=== PATIENT | male | born 1960 | race Caucasian/White ===

== ENCOUNTER 2017-05-18 19:35 | Emergency (ER) | payer OTHER ==
[~2017-05-18] VITALS: Ht 175.3 cm; Wt 77.1 kg
[~2017-05-18 19:35] MED LIST: CLINDAMYCIN HC150 MG ORAL; DIOVAN80 MG ORAL; GABAPENTIN300 MG ORAL; PANTOPRAZOLE SO40 MG ORAL; PROZAC20 MG ORAL; TOBRADEX EYE DRO5 M1 OP
--- NOTE | 2017-05-18 19:53 | Emergency Room Report ---
History of Present Illness General Chief Complaint: Pain Source: Patient Present Illness HPI 56-year-old male, history of hypertension, PTSD, presenting with generalized weakness for 3 days. Patient states that he was seen in [facility] yesterday , but left AGAINST MEDICAL ADVICE because he wanted to go home. Patient says that he is just felt very dizzy for the last 3 days, no fall. No chest pain or shortness of breath. No fever or chills pt also endorsing his worsening of PTSD. endorsing that he "wants to hurt people " but will not say how. states he was in the and has firearms at home Allergies: Coded Allergies: PENICILLINS (Unverified Allergy, Unknown, 05/18/17) Patient History Past Medical History: see triage record Past Surgical History: none Pertinent Family History: none Reviewed Nursing Documentation: PMH: Agreed, PSxH: Agreed Nursing Documentation-PMH Hx Hypertension: Yes History Of Psychiatric Problem: Yes - Depression, PTSD Review of Systems All Other Systems: negative except mentioned in HPI Physical Exam Vital Signs Date Time Temp Pulse Resp B/P (MAP) Pulse Ox O2 Delivery O2 Flow Rate FiO2 05/18/17 19:27 98.2 88 16 118/73 98 Room Air 98.2 Sp02 EP Interpretation: reviewed, normal General Appearance: alert, GCS 15, non-toxic, moderate distress Head: normocephalic, atraumatic Eyes: bilateral eye normal inspection, bilateral eye PERRL, bilateral eye EOMI ENT: normal ENT inspection, normal pharynx, normal voice, moist mucus membranes Neck: normal inspection, full range of motion, supple Respiratory: normal inspection, lungs clear, normal breath sounds, no respiratory distress, no retraction, no wheezing, speaking full sentences, chest symmetrical Cardiovascular #1: normal inspection, regular rate, rhythm, normal capillary refill Cardiovascular #2: 2+ radial (R), 2+ radial (L) Gastrointestinal: normal inspection, non tender, soft, non-distended, no guarding Musculoskeletal: normal inspection, back normal, normal range of motion, non- tender Neurologic: normal inspection, alert, oriented x3, responsive, motor strength/ tone normal, sensory intact, normal gait, speech normal Psychiatric: normal inspection, judgement/insight normal, memory normal Skin: normal inspection, normal color, no rash, warm/dry, well hydrated, normal turgor Medical Decision Making Diagnostic Impression: Primary Impression: Dizziness Additional Impression: Homicidal thoughts ER Course 56-year-old male, with 3 days of feeling lightheaded, also PTSD +homicidal ideation DDX: Electrolyte disturbance, dehydration, cardiac, drug intoxication, psych Plan: Obtain labs, ua, ucx, CXR, EKG ER course: Patient has remained stable during ED stay. given ativan still endorsing HI informed psych Dr Helton about patient Signed out to Dr Guerrier -pending psych eval for HI. not on a hold Please note that this Emergency Department Report was dictated using [employer] engineering intern technology software, occasionally this can lead to erroneous entry secondary to interpretation by the dictation equipment EKG Diagnostic Results EP Interpretation: Yes Rate: normal Rhythm: NSR ST Segments: No acute changes ASA given to patient: No Chest X-ray CXR: Ordered: Yes 1 view Indication: Chest pain EP interpretation: Yes Interpretation: No consolidation, no effusion, no PTX, no acute cardiopulmonary disease Impression: No acute disease Electronically signed by Regla Rae MD Laboratory Tests Test 05/18/17 20:20 White Blood Count 14.2 K/UL (4.8-10.8) H Red Blood Count 4.16 M/UL (4.70-6.10) L Hemoglobin 13.5 G/DL (14.2-18.0) L Hematocrit 38.4 % (42.0-52.0) L Mean Corpuscular Volume 92 FL (80-99) Mean Corpuscular Hemoglobin 32.5 PG (27.0-31.0) H Mean Corpuscular Hemoglobin Concent 35.2 G/DL (32.0-36.0) Red Cell Distribution Width 11.5 % (11.6-14.8) L Platelet Count 349 K/UL (150-450) Mean Platelet Volume 7.0 FL (6.5-10.1) Neutrophils (%) (Auto) 65.9 % (45.0-75.0) Lymphocytes (%) (Auto) 21.9 % (20.0-45.0) Monocytes (%) (Auto) 8.3 % (1.0-10.0) Eosinophils (%) (Auto) 3.2 % (0.0-3.0) H Basophils (%) (Auto) 0.7 % (0.0-2.0) Urine Color Yellow Urine Appearance Clear Urine pH 7 (4.5-8.0) Urine Specific [place] 1.005 (1.005-1.035) Urine Protein Negative (NEGATIVE) Urine Glucose (UA) Negative (NEGATIVE) Urine Ketones Negative (NEGATIVE) Urine Occult Blood Negative (NEGATIVE) Urine Nitrite Negative (NEGATIVE) Urine Bilirubin Negative (NEGATIVE) Urine Urobilinogen 4 MG/DL (0.0-1.0) H Urine Leukocyte Esterase 1+ (NEGATIVE) H Urine RBC 0-2 /HPF (0 - 0) H Urine WBC 2-4 /HPF (0 - 0) Urine Squamous Epithelial Cells None /LPF (NONE/OCC) Urine Bacteria Few /HPF (NONE) Sodium Level 137 MMOL/L (136-145) Potassium Level 4.9 MMOL/L (3.5-5.1) Chloride Level 98 MMOL/L (98-107) Carbon Dioxide Level 32 MMOL/L (21-32) Anion Gap 7 mmol/L (5-15) Blood Urea Nitrogen 20 mg/dL (7-18) H Creatinine 1.2 MG/DL (0.55-1.30) Estimate Glomerular Filtration Rate > 60 mL/min (>60) Glucose Level 107 MG/DL (74-106) H Calcium Level 9.1 MG/DL (8.5-10.1) Total Bilirubin 0.2 MG/DL (0.2-1.0) Aspartate Amino Transferase (AST) 40 U/L (15-37) H Alanine Aminotransferase (ALT) 76 U/L (12-78) Alkaline Phosphatase 101 U/L (46-116) Troponin I 0.000 ng/mL (0.000-0.056) Total Protein 7.2 G/DL (6.4-8.2) Albumin 3.2 G/DL (3.4-5.0) L Globulin 4.0 g/dL Albumin/Globulin Ratio 0.8 (1.0-2.7) L Urine Opiates Screen Negative (NEGATIVE) Urine Barbiturates Screen Negative (NEGATIVE) Phencyclidine (PCP) Screen Negative (NEGATIVE) Urine Amphetamines Screen Negative (NEGATIVE) Urine Benzodiazepines Screen Negative (NEGATIVE) Urine Cocaine Screen Negative (NEGATIVE) Urine Marijuana (THC) Screen Positive (NEGATIVE) H Serum Alcohol < 3 mg/dL Last Vital Signs Date Time Temp Pulse Resp B/P (MAP) Pulse Ox O2 Delivery O2 Flow Rate FiO2 05/18/17 19:27 98.2 88 16 118/73 98 Room Air 98.2 Regla Rae M.D. May 18, 2017 19:52
[2017-05-18] MEDS ORDERED: LORazepam Inj 2mg/ml 1ml IV ONE (20:00)
[2017-05-18 20:59] LABS: ANION GAP 7 mmol/L (5-15); BLOOD UREA NITROGEN 20 mg/dL (7-18); CALCIUM 9.1 MG/DL (8.5-10.1); CARBON DIOXIDE 32 MMOL/L (21-32); CHLORIDE 98 MMOL/L (98-107); CREATININE 1.2 MG/DL (0.55-1.30); POTASSIUM 4.9 MMOL/L (3.5-5.1); SODIUM 137 MMOL/L (136-145)
[2017-05-18 21:00] LABS: BASOPHILS % (AUTO) 0.7 % (0.0-2.0); EOSINOPHILS % (AUTO) 3.2 % (0.0-3.0); HEMATOCRIT 38.4 % (42.0-52.0); HEMOGLOBIN 13.5 G/DL (14.2-18.0); LYMPHOCYTES % (AUTO) 21.9 % (20.0-45.0); MEAN CORPUSCULAR VOLUME 92 FL (80-99); MONOCYTES % (AUTO) 8.3 % (1.0-10.0); NEUTROPHILS % (AUTO) 65.9 % (45.0-75.0); PLATELET COUNT 349 K/UL (150-450); RED BLOOD COUNT 4.16 M/UL (4.70-6.10); RED CELL DISTRIBUTION WIDTH 11.5 % (11.6-14.8); WHITE BLOOD COUNT 14.2 K/UL (4.8-10.8)
[2017-05-18 21:03] LABS: APPEARANCE,URINE CLEAR; BILIRUBIN, URINE NEGATIVE (NEGATIVE); GLUCOSE, URINE (UA) NEGATIVE (NEGATIVE); KETONES,URINE NEGATIVE (NEGATIVE); LEUKOCYTE ESTERASE ,URINE 1+ (NEGATIVE); NITRITE,URINE NEGATIVE (NEGATIVE); PH,URINE 7 (4.5-8.0); PROTEIN,URINE NEGATIVE (NEGATIVE); UROBILINOGEN,URINE 4 MG/DL (0.0-1.0)
[2017-05-18 21:04] LABS: ALANINE AMINOTRANSFERASE 76 U/L (12-78); ALBUMIN 3.2 G/DL (3.4-5.0); ALBUMIN/GLOBULIN RATIO 0.8 (1.0-2.7); ALKALINE PHOSPHATASE 101 U/L (46-116); ASPARTATE AMINO TRANSFERASE 40 U/L (15-37); BILIRUBIN,TOTAL 0.2 MG/DL (0.2-1.0); COLOR,URINE YELLOW
[2017-05-18 23:15] VITALS: BP 110/71
[2017-05-19 03:01] VITALS: BP 101/64
[2017-05-19 06:37] VITALS: BP 102/66
[2017-05-19 09:10] VITALS: BP 149/85
--- NOTE | 2017-05-19 10:36 | Diagnostic Imaging Report ---
Indication: Dyspnea Comparison: None A single view chest radiograph was obtained. Findings: Cardiomediastinal appearance is within normal limits for age. Pulmonary vascularity is appropriate. The diaphragmatic contour is smooth and costophrenic angles are sharp. No pleural effusions are identified. The bones are unremarkable. Impression: No acute findings
[2017-05-19] MEDS ORDERED: RISPERDAL1 MG PO (11:37)
[2017-05-19] MEDS ORDERED: Clindamycin 150mg cap ORAL SCH (12:00)
[2017-05-19 13:15] VITALS: BP 145/82
[2017-05-19 13:53] VITALS: BP 145/82
--- NOTE | 2017-05-19 16:26 | Cardiology Report ---
APPROVED REPORT EKG Measurement Heart [id number] Normal sinus rhythm Possible Left atrial enlargement Borderline ECG
--- NOTE | 2017-05-19 23:28 | Consultation ---
History of Present Illness General Date patient seen: May 19, 2017 Chief Complaint: Pain Present Illness HPI 56-year-old male, history of hypertension, PTSD, presenting with generalized weakness for 3 days. Patient states that he was seen in [facility] yesterday, and left ama because he wanted to go home. the pt was inconsistent and initially he said he had firearm then he denied. he stated that he was living with his then he stated that they are . He created chaos in ED. the pt was loud and perseverated that he does not get along with his brother...then he stated that he never said that he had a gun and he is homeless. The pt has been taking prozac and is non compliant with his appointment. the pt is no endorsing psychotic nor manic sxs. the pt calm down later, he was given risperdal. he denied si Allergies: Coded Allergies: PENICILLINS (Unverified Allergy, Unknown, 05/18/17) Medication History Scheduled Clindamycin Hcl* (Clindamycin Hcl*), 150 MG ORAL FOUR TIMES A DAY, (Reported) Fluoxetine Hcl* (Prozac*), 20 MG ORAL DAILY, (Reported) Gabapentin* (Gabapentin*), 300 MG ORAL BEDTIME, (Reported) Pantoprazole* (Pantoprazole*), 40 MG ORAL DAILY, (Reported) Risperidone* (Risperdal*), 1 MG PO DAILY Valsartan (Diovan), 40 MG ORAL DAILY, (Reported) Miscellaneous Medications Tobramycin/Dexamethasone (Tobradex Eye Drops), 5 ML OP, (Reported) Patient History Limited by: medical condition History Provided By: Patient, Medical Record, PMD Healthcare decision maker Resuscitation status Advanced Directive on File Past Medical/Surgical History Past Medical/Surgical History: (1) PTSD (post-traumatic stress disorder) (2) Skin infection Review of Systems Psychiatric: Reports: prior hx, emotional problems Physical Exam General Appearance: no apparent distress, alert Last 24 Hour Vital Signs Date Time Temp Pulse Resp B/P (MAP) Pulse Ox O2 Delivery O2 Flow Rate FiO2 05/19/17 13:53 86 18 145/82 99 Room Air 05/19/17 13:15 86 18 145/82 Room Air 05/19/17 09:10 96 18 149/85 Room Air 3/6/18 06:37 98.2 97 16 102/66 96 Room Air 98.2 05/19/17 03:01 98.2 101 16 101/64 96 Room Air 98.2 Intake and Output 05/18/17 05/19/17 19:00 07:00 Output Total 500 ml Balance -500 ml Output Urine Total 500 ml # Voids 1 Height (Feet): 5 Height (Inches): 9.00 Weight (Pounds): 170 Assessment/Plan Status: stable Assessment/Plan depression and ptsd by hx diana hobson as he maybe bipolar the pt is not at imminent dts/dto RENO came and spoke to him about the Brigette Feliciano M.D. May 19, 2017 23:28
== END 2017-05-19 13:57 | disposition home or self-care (01) ==
LOC: EDBD 19:35 → EMR 19:45
DX: R42 Dizziness and giddiness (principal); R45.850 Homicidal ideations; F43.10 Post-traumatic stress disorder, unspecified; F32.9 Major depressive disorder, single episode, unspecified; Z88.0 Allergy status to penicillin
CPT/HCPCS: 36415; 71045; 80053; 80307; 80329; 81003; 84484; 85025; 93005; 96374; 99284